=== PATIENT | male | born 1990 | race African-American/Black ===

== ENCOUNTER 2016-05-31 08:15 | Emergency (ER) | payer OTHER | END 2016-05-31 08:19 | disposition home or self-care (01) | LOC: CED 08:15 | DX: S02.5XXA Fracture of tooth (traumatic), initial encounter for closed fracture (principal); F17.210 Nicotine dependence, cigarettes, uncomplicated; X58.XXXA Exposure to other specified factors, initial encounter; Y92.9 Unspecified place or not applicable | CPT/HCPCS: 99282 ==